=== PATIENT | male | born 1950 | race Caucasian/White ===

== ENCOUNTER 2020-07-30 08:58 | Observation (INO) ==
[~2020-07-30 08:58] MED LIST: Buffered Lidocaine 1% SYRIN 1 ml INTRADERM ONE; Dexamethasone IV 4 MG/ML VIAL 1 ml VIAL IV SLOW PU ONE; Famotidine IV 10 MG/ML 2 ml VIAL (20 mg) IV ONE; Lactated Ringers 1000 ml BAG 1,000 ML IV SCH
[2020-07-30] MEDS ORDERED: ceFAZolin 2 GM in NS PREMIX 2 GM/100 ML BAG IVPB ONE (09:21)
[2020-07-30] MEDS ORDERED: Buffered Lidocaine 1% SYRIN 1 ml INTRADERM ONE (09:21)
[2020-07-30] MEDS ORDERED: Famotidine IV 10 MG/ML 2 ml VIAL (20 mg) ONE (09:21)
[2020-07-30] MEDS ORDERED: Dexamethasone IV 4 MG/ML VIAL 1 ml VIAL ONE (09:21)
[2020-07-30] MEDS ORDERED: Bupivacaine 0.5% SDV PF 30ML VIAL ONE (10:09)
[2020-07-30] MEDS ORDERED: Lidocaine 1% w EPI 1:100,000 MDV 20 ML VIAL ONE (10:09)
[2020-07-30] MEDS ORDERED: Midazolam 5 mg/5 ml VIAL 1 mg/ml 5 ml VIAL (5 mg) ONE (10:22)
[2020-07-30] MEDS ORDERED: fentaNYL 100 mcg/2 ml 50 MCG/ML VIAL ONE (10:22)
[2020-07-30] MEDS ORDERED: ROPIVACAINE 5 MG/ML 30 ML BTL (0.5%) ONE (10:41)
[2020-07-30] MEDS ORDERED: Lidocaine 2% PF 5 ML VIAL ONE (11:16)
[2020-07-30] MEDS ORDERED: Propofol 10 MG/ML 20 ML BTL ONE ×2 (11:16→12:49)
[2020-07-30] MEDS ORDERED: EPHEDrine (Pressors) 50 MG/ML VIAL ONE (11:21)
[2020-07-30] MEDS ORDERED: HYDROcodone/ACETAMIN 5/325 mg TAB PO PRN (11:50)
[2020-07-30] MEDS ORDERED: Ondansetron 4 mg VIAL 2 MG/ML 2 ml VIAL IV PRN ×2 (11:50→13:39)
[2020-07-30] MEDS ORDERED: DiMENhydriNATE IV 50 mg/ml 1 ml VIAL IV PUSH PRN (11:50)
[2020-07-30] MEDS ORDERED: oxyCODONE/Acetamin 5/325 mg TAB PO PRN (11:50)
[2020-07-30] MEDS ORDERED: Morphine 4 MG/ML VIAL (1 ml) IV PRN (11:50)
[2020-07-30] MEDS ORDERED: fentaNYL 100 mcg/2 ml 50 MCG/ML VIAL IV PRN (11:50)
[2020-07-30] MEDS ORDERED: Naloxone 0.4 mg VIAL 0.4 mg/ml 1 ml VIAL IV PRN (11:50)
[2020-07-30] MEDS ORDERED: Phenylephrine 40 mcg/mL 10mL (400mcg) SYRINGE ONE (11:51)
[2020-07-30] MEDS ORDERED: Phenylephrine IV 10 MG/ML 1 ml VIAL ONE (12:02)
[2020-07-30] MEDS ORDERED: Magnesium Hydroxide LIQ 30 ML UDC PO PRN (13:39)
[2020-07-30] MEDS ORDERED: Ondansetron ODT 4 mg TAB 4 MG TAB PO PRN (13:39)
[2020-07-30] MEDS ORDERED: diPHENhydraMINE 25 mg TAB PO PRN (13:39)
[2020-07-30] MEDS ORDERED: diPHENhydraMINE IV 50 MG/ML 1 ml VIAL (BENADRYL) IV PRN (13:39)
[2020-07-30] MEDS ORDERED: Lactulose 30 ml UDC PO PRN (13:39)
[2020-07-30] MEDS ORDERED: Morphine 2 MG/ML SYRINGE IV PRN (13:39)
[2020-07-30] MEDS: Lactated Ringers 1000 ml BAG 1,000 ML IV SCH (14:52)
[2020-07-30] MEDS: ceFAZolin 1 GM ADVAN 1 GM in NS 0.9% 50 ML 50 ML IVPB SCH (19:41)
[2020-07-30] MEDS: Magnesium Hydroxide LIQ 30 ML UDC PO SCH (19:43)
[2020-07-31] MEDS: Lactated Ringers 1000 ml BAG 1,000 ML IV SCH (01:05)
[2020-07-31] MEDS: ceFAZolin 1 GM ADVAN 1 GM in NS 0.9% 50 ML 50 ML IVPB SCH ×2 (03:19→11:14)
[2020-07-31 07:03] LABS: BUN/Creatinine Ratio 22.7 (8-20); Calcium 8.7 mg/dL (8.6-10.3); EGFR African American 104.2 (>60); EGFR Non-African American 86.1 (>60); Hematocrit 34 % (42-52); Hemoglobin 11.6 g/dL (14.0-18.0); Mean Platelet Volume 8.4 fL (7.4-10.4); Platelet Count 216 10^3/uL (150-450); Potassium 4.4 mmol/L (3.5-5.0)
[2020-07-31] MEDS ORDERED: Aspirin EC 81 mg TAB.EC (enteric coated) PO SCH (09:00)
[2020-07-31] MEDS ORDERED: Vitamin THERAPEUTIC TAB PO SCH (09:00)
[2020-07-31] MEDS: Magnesium Hydroxide LIQ 30 ML UDC PO SCH (09:54)
[2020-07-31 11:34] VITALS: BP 116/73
== END 2020-07-31 13:10 | disposition home or self-care (01) ==
LOC: OR 08:58 → SSU 08:58
PROVIDERS: ADMIT Orthopaedic Surgery; ATTEND Orthopaedic Surgery

== ENCOUNTER 2022-09-29 11:59 | Inpatient (IN) ==
[~2022-09-29 11:59] MED LIST changes: -Dexamethasone IV 4 MG/ML VIAL 1 ml VIAL IV SLOW PU ONE; -Famotidine IV 10 MG/ML 2 ml VIAL (20 mg) IV ONE; +Naloxone 0.4 mg VIAL 0.4 mg/ml 1 ml VIAL IV PRN; +Ondansetron 4 mg VIAL 2 MG/ML 2 ml VIAL IV PRN; +fentaNYL 100 mcg/2 ml 50 MCG/ML VIAL IV PRN
[2022-09-29] MEDS ORDERED: Lidocaine 2% PF 5 ML VIAL ONE ×2 (12:58→13:46)
[2022-09-29] MEDS ORDERED: Propofol 10 MG/ML 20 ML BTL ONE ×2 (12:58→16:46)
[2022-09-29] MEDS ORDERED: Ketamine HCL 50 mg/ml 10 ml VIAL (500 MG) ONE (13:03)
[2022-09-29] MEDS ORDERED: ceFAZolin 2 GM PREMIX 2 GM/50 ML BAG ONE (13:08)
[2022-09-29] MEDS ORDERED: Midazolam 2 mg/2 ml VIAL 1 mg/ml 2 ml VIAL (2 mg) ONE ×2 (13:45→15:39)
[2022-09-29] MEDS ORDERED: ROPIVACAINE 5 MG/ML 30 ML BTL (0.5%) ONE (13:45)
[2022-09-29] MEDS ORDERED: Dexamethasone IV 4 MG/ML VIAL 1 ml VIAL ONE (13:45)
[2022-09-29] MEDS ORDERED: Lactulose 30 ml UDC PO PRN (16:10)
[2022-09-29] MEDS ORDERED: Magnesium Hydroxide LIQ 30 ML UDC PO PRN (16:10)
[2022-09-29] MEDS ORDERED: Morphine 2 MG/ML SYRINGE IV PRN (16:10)
[2022-09-29] MEDS ORDERED: Ondansetron ODT 4 mg TAB 4 MG TAB PO PRN (16:10)
[2022-09-29] MEDS ORDERED: Ondansetron 4 mg VIAL 2 MG/ML 2 ml VIAL IV PRN (16:10)
[2022-09-29] MEDS ORDERED: Ropivacaine 5 MG/ML 20 ML VIAL 0.5% (100 MG) ONE (16:18)
[2022-09-29] MEDS ORDERED: Acetaminophen IV 1 GM/100ML 1,000 MG/100 ML BAG IV ONE (16:44)
[2022-09-29] MEDS ORDERED: Ondansetron 4 mg VIAL 2 MG/ML 2 ml VIAL ONE (16:55)
[2022-09-29] MEDS ORDERED: ceFAZolin 1 GM ADVAN 1 GM in NS 0.9% 50 ML 50 ML IVPB SCH (17:00)
[2022-09-29] MEDS ORDERED: Lactated Ringers 1000 ml BAG 1,000 ML IV SCH (17:00)
[2022-09-29] MEDS: Magnesium Hydroxide LIQ 30 ML UDC PO SCH (21:31)
[2022-09-29] MEDS: ceFAZolin 1 GM ADVAN 1 GM in NS 0.9% 50 ML 50 ML IVPB SCH (23:53)
[2022-09-30] MEDS: ceFAZolin 1 GM ADVAN 1 GM in NS 0.9% 50 ML 50 ML IVPB SCH ×2 (06:35→13:45)
[2022-09-30 06:40] LABS: Hematocrit 40 % (42-52); Hemoglobin 13.5 g/dL (14.0-18.0); Mean Platelet Volume 7.9 fL (7.4-10.4); Platelet Count 235 10^3/uL (150-450)
[2022-09-30 07:17] LABS: Calcium 9.1 mg/dL (8.6-10.3); eGFR CKD-EPI 72.6 (>60)
[2022-09-30] MEDS ORDERED: Vitamin THERAPEUTIC TAB PO SCH (09:00)
[2022-09-30] MEDS: Magnesium Hydroxide LIQ 30 ML UDC PO SCH (11:18)
[2022-09-30 12:26] VITALS: BP 139/82
== END 2022-09-30 15:05 | disposition home or self-care (01) | DRG 470 ==
LOC: INTOOBSV 11:59 → AA 11:59 → SSU 19:12
PROVIDERS: ADMIT Orthopaedic Surgery Adult Reconstructive Orthopaedic Surgery; ATTEND Orthopaedic Surgery Adult Reconstructive Orthopaedic Surgery

== ENCOUNTER 2024-05-29 18:29 | Observation (INO) ==
[2024-05-29 19:08] LABS: ABS Basophils 0.1 10^3/uL (0.0-0.1); ABS Eosinophils 0.2 10^3/uL (0.0-0.5); ABS Lymphocytes 1.7 10^3/uL (1.0-4.8); ABS Monocytes 0.5 10^3/uL (0.0-1.1); ABS Neutrophils 2.9 10^3/uL (1.5-7.6); ABS Nucleated RBC 0.01 10^3/ul; Eosinophil % 3.1 %; Hematocrit 39.8 % (38-53); Hemoglobin 13.9 g/dL (13.2-16.3); Lymphocyte % 31.5 %; Mean Corpuscular Hemoglobin 31.6 pg (27-33); Mean Corpuscular Hgb Conc 34.8 g/dL (31-36); Mean Corpuscular Volume 90.7 fL (80-97); Mean Platelet Volume 7.8 fL (7.5-11.2); Nucleated Red Blood Cells % 0.1 %/100WBC (0.0-0.8); Platelet Count 229 10^3/uL (150-450); Red Blood Count 4.39 10^6/uL (4.06-5.63); Red Cell Distribution Width 14.3 % (12-17); White Blood Count 5.4 10^3/uL (3.6-10.2)
[2024-05-29 19:13] LABS: Urine Appearance Clear; Urine Bilirubin Negative (Negative); Urine Blood Negative (Negative); Urine Color Yellow; Urine Glucose Negative (Negative); Urine Ketones Negative (Negative); Urine Nitrite Negative (Negative); Urine Protein Negative (Negative); Urine Urobilinogen Negative (Negative); Urine pH 6.5 (5.0-8.0)
[2024-05-29 19:15] LABS: INR 1.04 (0.83-1.13)
[2024-05-29 19:49] LABS: Albumin 4.2 g/dL (3.2-5.2); Calcium 9.4 mg/dL (8.6-10.3); Creatinine, Serum 1.02 mg/dL (0.67-1.17); Globulin 2.1 g/dL (2-4); Potassium 4.1 mmol/L (3.5-5.0); Total Bilirubin 0.4 mg/dL (0.2-1.0); Total Protein 6.3 g/dL (6.4-8.9); eGFR CKD-EPI 78.1 (>60)
[2024-05-29] MEDS: Iohexol 350 (CONTRAST) 500 ML MDV IV ONE (23:59)
[2024-05-30 05:33] LABS: ABS Basophils 0.1 10^3/uL (0.0-0.1); ABS Eosinophils 0.2 10^3/uL (0.0-0.5); ABS Lymphocytes 1.6 10^3/uL (1.0-4.8); ABS Monocytes 0.5 10^3/uL (0.0-1.1); ABS Neutrophils 2.5 10^3/uL (1.5-7.6); Eosinophil % 3.4 %; Hematocrit 38.5 % (38-53); Hemoglobin 13.5 g/dL (13.2-16.3); Lymphocyte % 33.5 %; Mean Corpuscular Hemoglobin 31.3 pg (27-33); Mean Corpuscular Hgb Conc 35.1 g/dL (31-36); Mean Corpuscular Volume 89.2 fL (80-97); Mean Platelet Volume 7.8 fL (7.5-11.2); Nucleated Red Blood Cells % 0.1 %/100WBC (0.0-0.8); Platelet Count 215 10^3/uL (150-450); Red Blood Count 4.32 10^6/uL (4.06-5.63); Red Cell Distribution Width 14.3 % (12-17); White Blood Count 4.9 10^3/uL (3.6-10.2)
[2024-05-30 06:12] LABS: Calcium 9.4 mg/dL (8.6-10.3); Creatinine, Serum 0.95 mg/dL (0.67-1.17); HDL Cholesterol 51.2 mg/dL; Potassium 3.9 mmol/L (3.5-5.0)
[2024-05-30] MEDS: Sulfur Hexaflouride MICROSPHR 25 MG VIAL IV ONE (16:00)
[2024-05-31 09:57] VITALS: BP 134/79
== END 2024-05-31 10:10 | disposition home or self-care (01) ==
LOC: EDHOLD 18:29 → ED 18:29 → SUATTDRO 05-30 00:59 → MEDTELE 05-30 09:38
PROVIDERS: ADMIT Internal Medicine; ATTEND Student in an Organized Health Care Education/Training Program